=== PATIENT | male | born 1940 | race Caucasian/White ===

== ENCOUNTER 2016-07-08 06:34 | Emergency (ER) | payer MEDICARE ==
[2016-07-08] MEDS ORDERED: SODIUM CHLORIDE 0.9% 1,000 ML IV STA (06:54)
--- NOTE | 2016-07-08 07:02 | ED ---
General Adult HPI - General Source: patient, EMS, RN notes reviewed Mode of arrival: EMS Limitations: altered mental status <Kieran Rankin - Last Filed: 07/08/16 06:59> <Jeff Viveros - Last Filed: 07/08/16 08:39> - General Chief complaint: Fall Stated complaint: fall Time Seen by Provider: 07/08/16 06:49 - History of Present Illness Initial comments: Patient is a pleasant 75-year-old male presenting to the emergency department following a fall. Patient was found on the floor this morning and his residence. Patient last known well at 7 PM last night. Patient states he fell and was too weak to get up. He should denies any significant injury. Patient denies syncope or striking his head. Patient states he was awake all night. Patient does admit to having a cough. Patient was given nebulizer treatment prior to arrival. (Kieran Rankin) - Related Data Home Medications Medication Instructions Recorded Confirmed Ergocalciferol (Vitamin D2) 50,000 units PO MO 08/03/15 10/23/15 [Drisdol] Hydrochlorothiazide 25 mg PO DAILY 08/03/15 10/23/15 Tamsulosin HCl [Flomax] 0.4 mg PO DAILY 08/03/15 10/23/15 amLODIPine BESYLATE [Norvasc] 5 mg PO DAILY 08/03/15 10/23/15 Allergies Allergy/AdvReac Type Severity Reaction Status Date / Time No Known Allergies Allergy Verified 10/23/15 01:14 Review of Systems ROS Other: All systems not noted in ROS Statement are negative. Constitutional: Denies: fever Eyes: Denies: eye pain ENT: Denies: ear pain Respiratory: Reports: cough Cardiovascular: Denies: chest pain Endocrine: Denies: fatigue Gastrointestinal: Denies: abdominal pain Genitourinary: Denies: dysuria Musculoskeletal: Denies: back pain Skin: Denies: rash Neurological: Denies: headache <Kieran Rankin - Last Filed: 07/08/16 06:59> ROS Other: All systems not noted in ROS Statement are negative. <Jeff Viveros - Last Filed: 07/08/16 08:39> ROS Statement: Those systems with pertinent positive or pertinent negative responses have been documented in the HPI. Past Medical History Past Medical History: Hyperlipidemia, Hypertension, Prostate Disorder Additional Past Medical History / Comment(s): bph, PAST FALL. History of Any Multi-Drug Resistant Organisms: None Reported Past Surgical History: Orthopedic Surgery Additional Past Surgical History / Comment(s): right knee surgery - pt denies any other surge Past Anesthesia/Blood Transfusion Reactions: No Reported Reaction Past Psychological History: No Psychological Hx Reported Additional Psychological History / Comment(s): pt lives at [facility], gets around with use of a walker.past falls. pt gave no contact number or name of any pcp.(none stated) Smoking Status: Former smoker Past Alcohol Use History: None Reported Additional Past Alcohol Use History / Comment(s): STATED SMOKED APPROX 10 1 PPD NOT SURE WHEN HE QUIT, STATED ALSO WAS A HEAVY DAILY DRINKER,POOR HISTORIAN TO HOW MUCH AND WHEN HE QUIT. DENIES ANY USE OF RECREATIONAL DRUGS. Past Drug Use History: None Reported - Past Family History Father History Unknown: Yes Mother History Unknown: Yes <Kieran Rankin - Last Filed: 07/08/16 06:59> General Exam Limitations: no limitations General appearance: alert, in no apparent distress Head exam: Present: atraumatic Eye exam: Present: normal appearance, PERRL ENT exam: Present: normal oropharynx Neck exam: Present: normal inspection. Absent: tenderness Respiratory exam: Present: normal lung sounds bilaterally Cardiovascular Exam: Present: regular rate, normal rhythm GI/Abdominal exam: Present: soft. Absent: tenderness Extremities exam: Present: normal inspection, full ROM. Absent: tenderness Neurological exam: Present: alert, CN II-XII intact. Absent: motor sensory deficit Expanded Patient oriented to: Present: person. Absent: place, time Motor strength exam: RUE: 5, LUE: 5, RLE: 5, LLE: 5 Eye Response: (4) open spontaneously Motor Response: (6) obeys commands Verbal Response: (4) confused conversation Psychiatric exam: Present: normal affect, normal mood Skin exam: Absent: rash <Kieran Rankin - Last Filed: 07/08/16 06:59> General appearance: alert, in no apparent distress Head exam: Present: atraumatic, normocephalic, normal inspection Eye exam: Present: normal appearance, PERRL, EOMI. Absent: scleral icterus, conjunctival injection, periorbital swelling ENT exam: Present: normal exam, mucous membranes moist Neck exam: Present: normal inspection. Absent: tenderness, meningismus, lymphadenopathy Respiratory exam: Present: normal lung sounds bilaterally. Absent: respiratory distress, wheezes, rales, rhonchi, stridor Cardiovascular Exam: Present: regular rate, normal rhythm, normal heart sounds. Absent: systolic murmur, diastolic murmur, rubs, gallop, clicks GI/Abdominal exam: Present: soft, normal bowel sounds. Absent: distended, tenderness, guarding, rebound, rigid Extremities exam: Present: normal inspection, full ROM, normal capillary refill. Absent: tenderness, pedal edema, joint swelling, calf tenderness Back exam: Present: normal inspection Neurological exam: Present: alert, oriented X3, CN II-XII intact Psychiatric exam: Present: normal affect, normal mood Skin exam: Present: warm, dry, intact, normal color. Absent: rash <Jeff Viveros - Last Filed: 07/08/16 08:39> Course <Kieran Rankin - Last Filed: 07/08/16 06:59> <Jeff Viveros - Last Filed: 07/08/16 08:39> Vital Signs 07/08/16 07/08/16 06:35 07:56 Temperature 96.8 F L Pulse Rate 66 63 Respiratory 16 18 Rate Blood Pressure 161/71 132/79 O2 Sat by Pulse 96 96 Oximetry - Reevaluation(s) Reevaluation #1: 07/08/16 08:38 Patient remains mildly computers, confused, didn't secondary to dementia, did speak with family, patient is hospice patient and family is against hospital admission (Jeff Viveros) EKG Findings - EKG Comments: EKG Findings:: EKG shows normal sinus rhythm rate of 65, MN 206, QRS 76, QTC 436 <Jeff Viveros - Last Filed: 07/08/16 08:39> Medical Decision Making <Kieran Rankin - Last Filed: 07/08/16 06:59> - Lab Data Result diagrams: 07/08/16 06:58 07/08/16 06:58 - Radiology Data Radiology results: report reviewed (CT brain C-spine chest x-ray and pelvis x- rays negative for acute disease), image reviewed <Jeff Viveros - Last Filed: 07/08/16 08:39> - Medical Decision Making 75 mallei are status post fall, fall found down, patient is in no acute distress , has no found injury, CT and x-rays are negative lab work is normal patient can be discharged home, patient will be discharged to care of family who is here to pick patient up (Jeff Viveros) - Lab Data Lab Results 07/08/16 07/08/16 07/08/16 Range/Units 06:58 06:58 06:58 WBC 8.2 (3.8-10.6) k/uL RBC 4.82 (4.30-5.90) m/uL Hgb 14.0 (13.0-17.5) gm/dL Hct 42.5 (39.0-53.0) % MCV 88.2 (80.0-100.0) fL MCH 29.1 (25.0-35.0) pg MCHC 33.0 (31.0-37.0) g/dL RDW 13.0 (11.5-15.5) % Plt Count 475 H (150-450) k/uL Neutrophils % 65 % Lymphocytes % 23 % Monocytes % 8 % Eosinophils % 2 % Basophils % 0 % Neutrophils # 5.3 (1.3-7.7) k/uL Lymphocytes # 1.8 (1.0-4.8) k/uL Monocytes # 0.6 (0-1.0) k/uL Eosinophils # 0.2 (0-0.7) k/uL Basophils # 0.0 (0-0.2) k/uL PT (9.0-12.0) sec INR (<1.1) APTT (22.0-30.0) sec Sodium 138 (137-145) mmol/L Potassium 3.5 (3.5-5.1) mmol/L Chloride 96 L (98-107) mmol/L Carbon Dioxide 31 H (22-30) mmol/L Anion Gap 11 mmol/L BUN 12 (9-20) mg/dL Creatinine 0.72 (0.66-1.25) mg/dL Est GFR (MDRD) Af Amer >60 (>60 ml/min/1.73 sqM) Est GFR (MDRD) Non-Af >60 (>60 ml/min/1.73 sqM) Glucose 85 (74-99) mg/dL Calcium 9.0 (8.4-10.2) mg/dL Phosphorus 3.1 (2.5-4.5) mg/dL Magnesium 2.0 (1.6-2.3) mg/dL Total Bilirubin 0.6 (0.2-1.3) mg/dL AST 37 (17-59) U/L ALT 30 (21-72) U/L Alkaline Phosphatase 69 (38-126) U/L Total Creatine Kinase 57 (55-170) U/L CK-MB (CK-2) 1.0 (0.0-2.4) ng/mL CK-MB (CK-2) Rel Index 1.8 Troponin I <0.012 (0.000-0.034) ng/mL Total Protein 7.4 (6.3-8.2) g/dL Albumin 4.1 (3.5-5.0) g/dL 07/08/16 Range/Units 06:58 WBC (3.8-10.6) k/uL RBC (4.30-5.90) m/uL Hgb (13.0-17.5) gm/dL Hct (39.0-53.0) % MCV (80.0-100.0) fL MCH (25.0-35.0) pg MCHC (31.0-37.0) g/dL RDW (11.5-15.5) % Plt Count (150-450) k/uL Neutrophils % % Lymphocytes % % Monocytes % % Eosinophils % % Basophils % % Neutrophils # (1.3-7.7) k/uL Lymphocytes # (1.0-4.8) k/uL Monocytes # (0-1.0) k/uL Eosinophils # (0-0.7) k/uL Basophils # (0-0.2) k/uL PT 10.6 (9.0-12.0) sec INR 1.0 (<1.1) APTT 24.6 (22.0-30.0) sec Sodium (137-145) mmol/L Potassium (3.5-5.1) mmol/L Chloride (98-107) mmol/L Carbon Dioxide (22-30) mmol/L Anion Gap mmol/L BUN (9-20) mg/dL Creatinine (0.66-1.25) mg/dL Est GFR (MDRD) Af Amer (>60 ml/min/1.73 sqM) Est GFR (MDRD) Non-Af (>60 ml/min/1.73 sqM) Glucose (74-99) mg/dL Calcium (8.4-10.2) mg/dL Phosphorus (2.5-4.5) mg/dL Magnesium (1.6-2.3) mg/dL Total Bilirubin (0.2-1.3) mg/dL AST (17-59) U/L ALT (21-72) U/L Alkaline Phosphatase (38-126) U/L Total Creatine Kinase (55-170) U/L CK-MB (CK-2) (0.0-2.4) ng/mL CK-MB (CK-2) Rel Index Troponin I (0.000-0.034) ng/mL Total Protein (6.3-8.2) g/dL Albumin (3.5-5.0) g/dL Disposition <Kieran Rankin - Last Filed: 07/08/16 06:59> <Jeff Viveros - Last Filed: 07/08/16 08:39> Clinical Impression: Fall, Weakness, Dementia Disposition: HOME SELF-CARE Condition: Good Instructions: Fall Prevention for Older Adults (ED) Referrals: Reagan Villanueva PAC [Primary Care Provider] - 1-2 days
[2016-07-08 07:09] LABS: Basophils % (A) 0 %; CH 29.5; CHCM 33.6; Eosinophils # (A) 0.2 k/uL (0-0.7); Eosinophils % (A) 2 %; HCT 42.5 % (39.0-53.0); HDW 2.54; Luc # (Auto) 0.22; Luc % (Auto) 3; Lymphocytes # (A) 1.8 k/uL (1.0-4.8); Lymphocytes % (A) 23 %; MCH 29.1 pg (25.0-35.0); MCV 88.2 fL (80.0-100.0); Mean Platelet Volume 6.5; Monocytes # (A) 0.6 k/uL (0-1.0); Monocytes % (A) 8 %; Neutrophils # (A) 5.3 k/uL (1.3-7.7); Neutrophils % (A) 65 %; RBC 4.82 m/uL (4.30-5.90); WBC 8.2 k/uL (3.8-10.6); WBC (Perox) 8.08
[2016-07-08 07:19] LABS: ALT 30 U/L (21-72); AST 37 U/L (17-59); Alkaline Phosphatase 69 U/L (38-126); Anion Gap 11 mmol/L; Blood Urea Nitrogen 12 mg/dL (9-20); Carbon Dioxide 31 mmol/L (22-30); Chloride 96 mmol/L (98-107); Glucose 85 mg/dL (74-99); Non-African American GFR(MDRD) >60 (>60 ml/min/1.73 sqM); Phosphorous 3.1 mg/dL (2.5-4.5); Potassium 3.5 mmol/L (3.5-5.1); Sodium 138 mmol/L (137-145); Total Bilirubin 0.6 mg/dL (0.2-1.3); Total Protein 7.4 g/dL (6.3-8.2)
[2016-07-08 07:35] LABS: Partial Thromboplastin Time 24.6 sec (22.0-30.0); Prothrombin Time 10.6 sec (9.0-12.0)
[2016-07-08 07:41] LABS: Creatine Kinase 57 U/L (55-170)
[2016-07-08 07:53] LABS: Troponin I <0.012 ng/mL (0.000-0.034)
[2016-07-08 07:59] VITALS: PULSE 63; RESP 18
--- NOTE | 2016-07-08 08:18 | XR ---
EXAMINATION TYPE: XR chest 1V portable DATE OF EXAM: 07/08/2016 7:48 AM COMPARISON: Prior chest x-ray 23 October 2015 HISTORY: Fall, abnormal chest x-ray, patient unresponsive TECHNIQUE: Single frontal view of the chest is obtained. FINDINGS: There is no focal air space opacity, pleural effusion, or pneumothorax seen. The cardiac silhouette size is stable. There are overlying cardiac leads. Marked arthropathy present in the lef t shoulder. Suspect posttraumatic change to the left shoulder is remote. The osseous structures are i ntact. IMPRESSION: Stable cardiomegaly. Patient is rotated, exam is expiratory.
--- NOTE | 2016-07-08 08:21 | CT ---
EXAMINATION TYPE: CT brain cspine wo con DATE OF EXAM: 07/08/2016 7:39 AM COMPARISON: Previous exam 23 October 2015 HISTORY: Fall CT DLP: 1386.60 mGycm Automated exposure control for dose reduction was used. TECHNIQUE: CT scan of the head and cervical spine are performed without contrast. FINDINGS: There is no acute intracranial hemorrhage, mass effect, or midline shift identified. The ventricles and sulci are within normal limits in size. The globes are intact and the visualized sin uses are remarkable for inflammatory change within the ethmoid air cells. Left frontal cephalohematom a or ecchymosis present within the scalp. Cervical spine is visualized in its entirety from C1 through upper thoracic levels and demonstrates s atisfactory alignment without evidence of acute fracture or dislocation. Prevertebral soft tissue ap pears within normal limits. Degenerative disc changes are stable within the cervical spine. The C1-C2 articulation is unremarkable. IMPRESSION: 1. There is no acute fracture or dislocation evident in the cervical spine. 2. No acute intracranial hemorrhage, mass effect, or midline shift is seen.
--- NOTE | 2016-07-08 08:22 | XR ---
AP pelvis HISTORY: Trauma, patient unresponsive Single frontal view of the pelvis correlated to previous of 09/19/2015 No interval change. Postop changes are noted to the hips. Degenerative disc changes in the visualized spine. There is low bone mineralization. IMPRESSION: No acute abnormalities evident.
[2016-07-08 10:00] VITALS: BP 137/76; TEMP 97.9
== END 2016-07-08 10:00 | disposition home or self-care (01) ==
LOC: EC 06:34
DX: Z04.3 Encounter for examination and observation following other accident (principal); R53.1 Weakness; F03.90 Unspecified dementia, unspecified severity, without behavioral disturbance, psychotic disturbance, mood disturbance, and anxiety; W18.30XA Fall on same level, unspecified, initial encounter; Y92.009 Unspecified place in unspecified non-institutional (private) residence as the place of occurrence of the external cause; Z91.81 History of falling; R05 Cough; I10 Essential (primary) hypertension; N40.0 Benign prostatic hyperplasia without lower urinary tract symptoms; Z79.899 Other long term (current) drug therapy; Z87.891 Personal history of nicotine dependence
CPT/HCPCS: 36415; 70450; 71010; 72125; 72170; 80053; 82550; 82553; 83735; 84100; 84484; 85025; 85610; 85730; 93005; 96360; 96361; 99285